=== PATIENT | female | born 1990 | race African-American/Black ===

== ENCOUNTER 2017-09-11 12:01 | Emergency (ER) | payer SELFPAY ==
[~2017-09-11] VITALS: Ht 177.8 cm; Wt 97.5 kg
[2017-09-11 12:09] VITALS: BP 145/84
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
[2017-09-11] MEDS ORDERED: CYCLOBENZAPRINE5 M2 PO (13:44)
== END 2017-09-11 13:49 ==
LOC: ERH 12:01
DX: S39.002A Unspecified injury of muscle, fascia and tendon of lower back, initial encounter (principal); V49.50XA Passenger injured in collision with unspecified motor vehicles in traffic accident, initial encounter; Y92.9 Unspecified place or not applicable
CPT/HCPCS: 72100